=== PATIENT | female | born 1955 | race Caucasian/White ===

== ENCOUNTER 2017-07-05 19:59 | Emergency (ER) | payer OTHER ==
[2017-07-05 20:18] VITALS: BP 155/77; PULSE 73; TEMP 97.5; BMI 25.0
--- NOTE | 2017-07-05 20:23 | PDOC ---
History of Present Illness - General Chief Complaint: Laceration Stated Complaint: LACERATION Time Seen by Provider: 07/05/17 20:25 History Source: Patient Exam Limitations: No Limitations - History of Present Illness Initial Comments: 07/05/17 21:23 Patient is a 61-year-old female with past medical history of hypertension, breast cancer in remission, who presents to the emergency department today stating that she sliced the tip of her finger off. Patient was assembling a mandolin to cut vegetables for dinner when she accidentally cut the top of her right second digit off. Patient states that she brought the piece of skin with her to the emergency department today she states that it hurts and that she has a little numbness to the affected area. Denies weakness, fevers, chills, nausea , vomiting, lightheadedness, dizziness. Past History - Travel Traveled outside of the country in the last 30 days: No Close contact w/someone who was outside of country & ill: No - Past Medical History Allergies/Adverse Reactions: Allergies Allergy/AdvReac Type Severity Reaction Status Date / Time No Known Allergies Allergy Verified 07/05/17 20:13 Home Medications: Ambulatory Orders Clindamycin [Cleocin -] 300 mg PO TID #21 capsule 07/05/17 Lisinopril 10 mg PO ASDIR 07/05/17 Metoprolol Succinate [Toprol Xl -] 50 mg PO DAILY 07/05/17 Tramadol HCl 50 mg PO BID #10 tablet MDD 2 07/05/17 Cancer: Yes (breast rt,) - Psycho/Social/Smoking Cessation Hx Anxiety: No Suicidal Ideation: No Smoking History: Never smoked Have you smoked in the past 12 months: No Information on smoking cessation initiated: No Hx Alcohol Use: No Drug/Substance Use Hx: No Substance Use Type: None Review of Systems - Review of Systems Able to Perform ROS?: Yes Is the patient limited Georgian proficient: No Constitutional: No: Chills, Fever, Malaise, Weakness Musculoskeletal: Yes: Other (R 2nd finger amputation, pain) Integumentary: Yes: Other (amputation to finger). No: Erythema, Pruritus, Rash Neurological: No: Numbness, Paresthesia, Weakness All Other Systems: Reviewed and Negative *Physical Exam - Vital Signs Last Vital Signs Temp Pulse Resp BP Pulse Ox 97.5 F L 73 17 155/77 100 07/05/17 20:10 07/05/17 20:10 07/05/17 20:10 07/05/17 20:10 07/05/17 20:10 - Physical Exam Comments: 07/05/17 22:25 GENERAL: [The patient is awake, alert, and fully oriented, in no acute distress. ] HEAD: [Normal with no signs of trauma.] EYES: [Pupils equal, round and reactive to light, extraocular movements intact, sclera anicteric, conjunctiva clear.] EXTREMITIES: [Normal range of motion in all joints including the R 2nd finger, no edema.] NEUROLOGICAL: [Normal speech, normal gait.] PSYCH: [Normal mood, normal affect.] SKIN: [R 2nd finger tip amputated. No bone exposed. Tip of finger nail cut as well. No damage to the nail bed. Warm, Dry, normal turgor, no rashes or lesions noted.] Medical Decision Making - Medical Decision Making 07/05/17 21:27 Patient is a 61-year-old female with past medical history of hypertension, breast cancer in remission, who presents to the emergency department today stating that she sliced the tip of her finger off. Will obtain x-ray to make sure there is no bony involvement, we will consult with Dr. Wang plastics for closure options. 07/05/17 21:35 Wet read of x-ray; missing soft tissue of the right second digit, no fracture of the R second finger Spoke with Dr. Wang; given that there is no bony involvement and no exposed bone, recommends putting a dressing over the finger to heal on its own. States that reattaching the fingertip we'll have poor healing and will not regain sensation. States that he can see the patient in the office tomorrow. 07/05/17 22:11 At this time will give a digital block and soak the finger with Betadine to help prevent infection. We'll update tetanus shot. After soaking will apply Surgicel dressing and covering over it and discharge home. Patient understands all discharge instructions and all questions were answered at this time. *DC/Admit/Observation/Transfer Diagnosis at time of Disposition: Amputation of finger Qualifiers: Encounter type: initial encounter Qualified Code(s): S68.119A - Complete traumatic metacarpophalangeal amputation of unspecified finger, initial encounter - Discharge Dispostion Disposition: HOME Condition at time of disposition: Good Admit: No - Referrals Referrals: Jace Cruz [Primary Care Provider] - Ezequiel Wang MD [Staff Physician] - - Patient Instructions Printed Discharge Instructions: DI for Laceration Repair Additional Instructions: You have a finger amputation. The skin could not be repaired, as it will heal better on its own. A dressing was placed over the finger to prevent infection. Follow up with Dr. Wang (plastics) tomorrow. His referral is attached in the packet. You may take Tylenol or Motrin as needed for pain. If you have break through pain you may take Tramadol. Do not drive after taking this medication as it may make you drowsy. You were also prescribed keflex. Take the antibiotics as prescribed and take the whole dose even if you feel better. Keep the wound covered until you see plastics Return to the ED if you have signs of infection including fevers, chills, yellow /green drainage, foul smell or any changes in your symptoms.
[2017-07-05] MEDS ORDERED: DIPHTH,PERTUSS(ACELL),TET 0.5 ML DISP.SYRIN IM ONE (22:36)
[2017-07-05] MEDS ORDERED: ACETAMINOPHEN 325 MG TABLET (FP) PO ONE (22:57)
[2017-07-05] MEDS ORDERED: ACETAMINOPHEN 325 MG TABLET (FP) ONE (22:58)
== END 2017-07-05 22:59 | disposition home or self-care (01) ==
LOC: JERFT 19:59 → SUPCPDRO 19:59 → JERFT 22:59
PROC: 3E0234Z Introduction of Serum, Toxoid and Vaccine into Muscle, Percutaneous Approach (ICD-10-PCS; principal; 2017-07-05)
DX: S68.610A Complete traumatic transphalangeal amputation of right index finger, initial encounter (principal); W27.4XXA Contact with kitchen utensil, initial encounter; Y93.G1 Activity, food preparation and clean up; Y92.010 Kitchen of single-family (private) house as the place of occurrence of the external cause
CPT/HCPCS: 73130-TC-RT; 90715; 99281-25